=== PATIENT | female | born 1940 | race Caucasian/White ===

== ENCOUNTER 2016-09-05 18:39 | Inpatient (IN) | payer OTHER, MEDICARE ==
[~2016-09-05] VITALS: Ht 160 cm; Wt 78.9 kg
--- NOTE | 2016-09-05 18:48 | NUR ---
PT SIB [facility] FOR "LOW PLATELETS" STATING SHE HAS BEEN FEELING WEAK AND FATIGUED LATELY, HAD BLOOD WORK TODAY AND WAS TOLD TO COME TO ED.
--- NOTE | 2016-09-05 19:42 | ED GENERAL ADULT ---
History of Present Illness General Chief Complaint: General Adult Stated Complaint: PT WAS SIB BY DOCTOR FOR PLATELET Source: patient Exam Limitations: no limitations Vital Signs & Intake/Output Vital Signs & Intake/Output Vital Signs Date Time Temp Pulse Resp B/P B/P Pulse O2 O2 Flow FiO2 Mean Ox Delivery Rate 09/06 0257 99.6 92 18 134/68 94 Room Air 09/06 0115 97.8 72 20 132/78 100 Room Air 09/05 2300 98.0 66 20 128/72 100 Room Air 09/05 2121 64 16 115/58 96 Room Air 09/05 1844 97.2 69 18 124/69 96 Room Air ED Intake and Output 09/06 0000 09/05 1200 Intake Total Output Total Balance Patient 174 lb Weight Weight Reported by Patient Measurement Method Allergies Coded Allergies: No Known Allergies (09/27/15) Reconcile Medications Amoxicillin 875 MG TABLET 1 TAB PO BID ANTIBIOTIC, INFECTION (Reported) Doxycycline Monohydrate 100 MG CAPSULE 1 CAP PO BID ANTIBIOTIC, INFECTION ( Reported) Hydroxychloroquine Sulfate 200 MG TABLET 1 TAB PO BID ANTIBIOTIC, INFECTION ( Reported) Levothyroxine Sodium (Synthroid) 137 MCG TABLET 1 TAB PO DAILY THYROID HEALTH (Reported) Levothyroxine Sodium (Synthroid) 150 MCG TABLET 1 TAB PO DAILY THYROID HEALTH (Reported) Losartan Potassium 50 MG TABLET 1 TAB PO DAILY HIGH BLOOD PRESSURE (Reported) Verapamil HCl (Verapamil ER) 240 MG TABLET.ER 1 TAB PO DAILY HIGH BLOOD PRESSURE (Reported) Triage Note: PT SIB [facility] FOR "LOW PLATELETS" STATING SHE HAS BEEN FEELING WEAK AND FATIGUED LATELY, HAD BLOOD WORK TODAY AND WAS TOLD TO COME TO ED. Triage Nurses Notes Reviewed? yes Onset: Abrupt Duration: week(s): (1), constant, continues in ED Timing: recent history Injury Environment: home No Modifying Factors: none HPI: 76-year-old female comes into emergency room sent in by her doctor for abnormal labs. Patient reports that for the past week that she has not been feeling well. She's been increasingly fatigued and feeling weak with subjective fever chills. She was found to have a low platelet count and some abnormal liver function tests and was sent to the hospital for further evaluation. She admits to me that she was bitten by a tick a little over a month ago. Denies any urinary symptoms. Denies any pain. She reports that she has some body aches but no particular pain in one region. (PATRICIO WATKINS) Past History Travel History Traveled to [place] past 21 day No Medical History Any Pertinent Medical History? see below for history Neurological: NONE EENT: NONE Cardiovascular: hypertension Respiratory: NONE Gastrointestinal: NONE Hepatic: NONE Renal: NONE Musculoskeletal: NONE Psychiatric: NONE Endocrine: HYPOTHYROID Blood Disorders: NONE Cancer(s): THYROID CANCER Surgical History Surgical History: non-contributory Psychosocial History What is your primary language [place] Tobacco Use: Never used ETOH Use: denies use Illicit Drug Use: denies illicit drug use Family History Hx Contributory? No (PATRICIO WATKINS) Review of Systems Review of Systems Constitutional: Reports: see HPI. EENTM: Reports: no symptoms. Respiratory: Reports: no symptoms. Cardiovascular: Reports: no symptoms. GI: Reports: no symptoms. Genitourinary: Reports: no symptoms. Musculoskeletal: Reports: no symptoms. Skin: Reports: no symptoms. Neurological/Psychological: Reports: no symptoms. Hematologic/Endocrine: Reports: no symptoms. Immunologic/Allergic: Reports: no symptoms. All Other Systems: Reviewed and Negative (PATRICIO WATKINS) Physical Exam Physical Exam General Appearance: well developed/nourished, alert Head: atraumatic, normal appearance Eyes: Bilateral: normal appearance. Ears, Nose, Throat: normal ENT inspection, hearing grossly normal Neck: normal inspection Respiratory: normal breath sounds, no respiratory distress Cardiovascular: regular rate/rhythm Gastrointestinal: soft, non-tender Back: normal inspection Extremities: normal inspection, no edema Neurologic/Psych: awake, alert, oriented x 3 Skin: intact, normal color Core Measures ACS in differential dx? No CVA/TIA Diagnosis: No Severe Sepsis Present: No Septic Shock Present: No (PATRICIO WATKINS) Progress Differential Diagnoses I considered the following diagnoses in my evaluation of the patient: Lyme disease, babesiosis, anaplasmosis, a reclean doses,ehrlichiosis, TTP, mild dysplastic syndrome, mono, Plan of Care: Orders Procedure Date/time Status Nothing by Mouth 09/06 B Active Vital Signs 09/06 253 Complete Teach/Educate 09/06 253 Active Pain Treatment and Response 09/06 253 Active Nutritional Intake, Monitor 09/06 253 Active Isolation 09/06 253 Active Intake & Output 09/06 253 Complete Patient Care Conference 09/06 253 Active Activity/Ambulation 09/06 253 Active Patient Data 09/06 0107 Active Saline Lock 09/05 233 Active Misc Message 09/05 233 Active ED Holding Orders 09/05 233 Active Admit to inpatient 09/05 2335 Active Vital Signs 09/05 233 Active Code Status 09/05 233 Active Add-on Test (ER Only) 09/05 2214 Active Add-on Test (ER Only) 09/05 2148 Active Intake & Output 09/06 2011 Active Add-on Test (ER Only) 09/06 1935 Active URINALYSIS 09/06 1935 Complete BLOOD CULTURE 09/05 1934 Active TROPONIN LEVEL 09/05 1934 Complete PARTIAL THROMBOPLASTIN TIME 09/05 1934 Complete PROTHROMBIN TIME 09/05 1934 Complete MONOSPOT TEST 09/05 1934 Active LACTIC ACID 09/05 1934 Complete COMPREHENSIVE METABOLIC PANEL 09/05 1934 Complete CBC WITHOUT DIFFERENTIAL 09/05 1934 Complete EKG 09/05 1934 Active Laboratory Tests 09/05/162234: Lactic Acid Cancelled 09/05/162129: Urinalysis LIGHT H, Urine Color YEL, Urine Clarity CLEAR, Urine pH 6.5, Ur Specific [place] <= 1.005, Urine Protein NEG, Urine Ketones NEG, Urine Nitrite NEG, Urine Bilirubin NEG, Urine Urobilinogen 1.0, Ur Leukocyte Esterase SMALL H , Ur Microscopic SEDIMENT EXAMINED, Urine RBC RARE, Urine WBC 3-5 H, Ur Epithelial Cells FEW, Urine Bacteria FEW H, Urine Mucus RARE, Urine Hemoglobin SMALL H, Urine Glucose NEG 09/05/161952: PT 13.0 H, INR 1.24 H, APTT 24 L, CBC w Diff MAN DIFF ORDERED, RBC 4.03 L, MCV 87.8, MCH 29.8, RDW 14.1, MPV 9.7, Gran % 58.0, Lymphocytes % 28.6, Monocytes % 12.9 H, Eosinophils % 0.1, Basophils % 0.4, Absolute Granulocytes 1.7, Segmented Neutrophils 51, Band Neutrophils 6 H, Absolute Lymphocytes 0.8 L, Lymphocytes 31, Monocytes 11 H, Absolute Monocytes 0.4, Eosinophils 1, Absolute Eosinophils 0, Absolute Basophils 0, Platelet Estimate VERIFIED BY SMEAR, PUBS MCHC 33.9, Fld Total RBCs Counted 100 07/14/17 1935: Anion Gap 9, Estimated GFR > 60, BUN/Creatinine Ratio 26.0 H, Glucose 100 H, Lactic Acid 1.2, Calcium 9.3, Total Bilirubin 1.8 H, AST 50 H, ALT 67 H, Alkaline Phosphatase 67, Troponin I < 0.01, Total Protein 5.4 L, Albumin 3.2 L , Globulin 2.2, Albumin/Globulin Ratio 1.5, Infectious [place] Titer NEGATIVE Microbiology 09/05 2004 BLOOD: Blood Culture - RECD 09/05 1952 BLOOD: Blood Culture - RECD Initial ED EKG: normal intervals, normal p-waves, normal QRS complex, normal sinus rhythm, rate (70), nonspecific ST T wave chg (PATRICIO WATKINS) Departure Departure Disposition: STILL A PATIENT Condition: Stable Clinical Impression Primary Impression: Anaplasmosis Secondary Impressions: Ehrlichiosis, Thrombocytopenia Referrals: WILDER WEINSTEIN,ERICA Sandoval (PCP/Family) Departure Forms: Customer Survey General Discharge Information Admission Note Spoke With: ALVIN JOHNSON MD Documentation of Exam: Documentation of any treatments & extenuating circumstances including Concerns Regarding Discharge (functional status, medication knowledge or non-compliance, living conditions, etc.) that warrant an admission rather than observation: IV doxycycline. Repeat labs. Spoke with hematology/oncology. They recommended admission. IV antibiotics. Follow blood cultures. Infectious disease consultation. Hematology oncology consultation. (PATRICIO WATKINS) PA/GOLD LEAF ROLLER Co-Sign Statement Statement: ED Attending supervision documentation- [] I saw and evaluated the patient. I have also reviewed all the pertinent lab results and diagnostic results. I agree with the findings and the plan of care as documented in the PA's/GOLD LEAF ROLLER's documentation. [x] I have reviewed the ED Record and agree with the PA's/GOLD LEAF ROLLER's documentation. [] Additions or exceptions (if any) to the PAs/GOLD LEAF ROLLER's note and plan are summarized below: [] (MEENAKSHI WEINSTEIN,PRISCILLA Sandoval) Critical Care Note Critical Care Note Critical Care Time: non-applicable (PATRICIO WATKINS)
--- NOTE | 2016-09-05 19:59 | NUR ---
LABS DRAWN AND SENT BY THIS [facility] (BLUE,SST,2 LAV,BYNUM,PINK,1ST SET OF B/C)
[2016-09-05] MEDS ORDERED: AMOXICILLIN875 M1 PO (20:13)
[2016-09-05] MEDS ORDERED: DOXYCYCLINE MO100 M2 PO (20:13)
[2016-09-05] MEDS ORDERED: SYNTHROID137 MCG PO (20:14)
[2016-09-05] MEDS ORDERED: HYDROXYCHLOROQ200 M2 PO (20:14)
[2016-09-05] MEDS ORDERED: LOSARTAN POTASS50 M1 PO (20:15)
[2016-09-05] MEDS ORDERED: SYNTHROID150 MCG PO (20:15)
[2016-09-05] MEDS ORDERED: VERAPAMIL ER240 M1 PO (20:15)
--- NOTE | 2016-09-05 20:16 | NUR ---
PT REPORTS BEING TREATED FOR TICK BITE. PT STATES THAT NERY WEINSTEIN SENT HER IN FOR EVALUATION OF LOW PLATELETS.
[2016-09-05 20:17] LABS: ABSOLUTE BASOPHIL COUNT 0 /CUMM (0.0-0.2); ABSOLUTE EOSINOPHIL COUNT 0 /CUMM (0.0-0.7); ABSOLUTE GRANULOCYTE CT 1.7 /CUMM (1.4-6.5); ABSOLUTE LYMPH COUNT 0.8 /CUMM (1.2-3.4); ABSOLUTE MONOCYTE COUNT 0.4 /CUMM (0.10-0.60); BASOPHIL % 0.4 % (0.0-2.0); EOSINOPHIL % 0.1 % (0-5); HEMATOCRIT 35.4 % (37-47); MEAN CORPUSCULAR HGB 29.8 PG (27.0-31.0); MEAN CORPUSCULAR HGB CONC 33.9 G/DL (33.0-37.0); MEAN CORPUSCULAR VOLUME 87.8 FL (81.0-99.0); MEAN PLATELET VOLUME 9.7 FL (7.4-10.4); RBC DISTRIBUTION WIDTH 14.1 % (11.5-14.5); RED BLOOD CELL CT 4.03 /CUMM (4.20-5.40); WHITE BLOOD CELL COUNT 2.9 /CUMM (4.8-10.8)
[2016-09-05 20:30] LABS: PTT 24 SEC (25-37)
[2016-09-05 20:46] LABS: PLATELET COUNT 28 /CUMM (130-400)
--- NOTE | 2016-09-05 20:46 | NUR ---
CRITICAL TEST RESULTS [id number] RAHEL OLIVAS 76 F TESTS AND RESULTS: PLT COUNT 28,000 Results received and read back by: SEAN GIL Results received date and time: 09/05/162045 The following provider was notified of the results, and read the results back: PATRICIO EDDY Notified date and time: 09/05/16 at 204
--- NOTE | 2016-09-05 21:38 | NUR ---
URINE SPECIMEN OBTAINED AND TRIO SENT TO LAB
--- NOTE | 2016-09-05 21:57 | NUR ---
LAB CALLED FOR ADD ON TEST.
--- NOTE | 2016-09-06 01:59 | NUR ---
REPORT GIVEN TO FLOOR RN, PT PLACED INTO WC FOR TRANSPORT. 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
--- NOTE | 2016-09-06 02:52 | NUR ---
A&Ox3, VSS, 0/10 PAIN, AMBULATED FROM WHEELCHAIR TO BED INDEPENDENTLY, STEADY GAIT. ORIENTED TO FLOOR. CALL VILLAVICENCIO IN REACH. WILL CONTINUE TO MONITOR THIS SHIFT.
[2016-09-06 02:57] VITALS: BP 134/68
--- NOTE | 2016-09-06 03:48 | History & Physical ---
HOMA WEINSTEIN,ROBERT 09/06/16 0321: General Information and HPI MD Statement: I have seen and personally examined RAHEL OLIVAS and documented this H&P. The patient is a 76 year old F who presented with a patient stated chief complaint of [fatigue and malaise]. Source of Information: patient, old records Exam Limitations: poor historian History of Present Illness: This is a 76-year-old female with past medical history significant for hypothyroidism, hypertension, and some rheumatologic condition affecting the norman which requires hydroxychloroquine, who was sent in by her PCP for abnormal lab values. Patient had labs drawn yesterday as she was not feeling well. She states that she was fatigued, uneasy, tired, and overall unwell. She had MAXIMUM TEMPERATURE 101.8 today before yesterday. She also endorses subjective fevers and chills. The symptoms occurred over the past 2 weeks. Prior to that she had been in her usual state of health. Patient denies any recent travel or sick contacts. Denies headache, nausea, vomiting, diarrhea, or constipation. She does state she had a recent tick exposure about a month ago. Her found take on her back. Denies any rash subsequently. She also has a previous remote history of tick exposure and treatment, patient was unable to provide any further details. She has a large bandage in garden and has chickens at home. Patient states he spends considerable time outdoors gardening. Family history is pertinent for CLL in mother and in sister. Surgical history pertinent for hysterectomy, bowel obstruction with subsequent surgery and thyroid cancer status post thyroidectomy. Patient denies smoking, or drugs. Allergies/Medications Allergies: Coded Allergies: No Known Allergies (09/27/15) Home Med list Amoxicillin 875 MG TABLET 1 TAB PO BID ANTIBIOTIC, INFECTION (Reported) Doxycycline Monohydrate 100 MG CAPSULE 1 CAP PO BID ANTIBIOTIC, INFECTION ( Reported) Hydroxychloroquine Sulfate 200 MG TABLET 1 TAB PO BID ANTIBIOTIC, INFECTION ( Reported) Levothyroxine Sodium (Synthroid) 137 MCG TABLET 1 TAB PO DAILY THYROID HEALTH (Reported) Levothyroxine Sodium (Synthroid) 150 MCG TABLET 1 TAB PO DAILY THYROID HEALTH (Reported) Losartan Potassium 50 MG TABLET 1 TAB PO DAILY HIGH BLOOD PRESSURE (Reported) Verapamil HCl (Verapamil ER) 240 MG TABLET.ER 1 TAB PO DAILY HIGH BLOOD PRESSURE (Reported) Compliance With Home Meds: GOOD Past History Travel History Traveled to [place] past 21 day No Medical History Blood Transfusion Hx: Yes Neurological: NONE EENT: NONE Cardiovascular: hypertension Respiratory: NONE Gastrointestinal: NONE Hepatic: NONE Renal: NONE Musculoskeletal: NONE Psychiatric: NONE Endocrine: HYPOTHYROID Blood Disorders: NONE Cancer(s): 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 Denies: unexplained weight loss. EENTM: Denies: blurred vision, double vision, visual changes, ear pain, ear redness. Cardiovascular: Denies: edema, palpitations. Respiratory: Denies: cough, short of breath, wheezing. GI: Denies: bloating, constipation, nausea, vomiting. Genitourinary: Reports: no symptoms. Musculoskeletal: Denies: joint pain, joint swelling. Skin: Denies: rash. Exam & Diagnostic Data Last 24 Hrs of Vital Signs/I&O Vital Signs Date Time Temp Pulse Resp B/P B/P Pulse O2 O2 Flow FiO2 Mean Ox Delivery Rate 09/06 0257 99.6 92 18 134/68 94 Room Air 09/06 0115 97.8 72 20 132/78 100 Room Air 09/05 2300 98.0 66 20 128/72 100 Room Air 09/05 2121 64 16 115/58 96 Room Air 09/05 1844 97.2 69 18 124/69 96 Room Air Intake & Output 09/06 0800 09/06 0000 09/05 1600 Intake Total Output Total Balance Patient 78.925 kg 78.925 kg Weight Weight Reported by Patient Measurement Method Physical Exam General Appearance Alert, Oriented X3, Cooperative, No Acute Distress Skin No Significant Lesion HEENT Atraumatic, PERRLA, EOMI Neck Supple Cardiovascular Regular Rate, Normal S1, Normal S2 Lungs Clear to Auscultation, Normal Air Movement Abdomen Soft, No Hepatospenomegaly Last 24 Hrs of Labs/Mike: Laboratory Tests 09/05/165: Lactic Acid Cancelled 09/05/162129: Urinalysis LIGHT H, Urine Color YEL, Urine Clarity CLEAR, Urine pH 6.5, Ur Specific [place] <= 1.005, Urine Protein NEG, Urine Ketones NEG, Urine Nitrite NEG, Urine Bilirubin NEG, Urine Urobilinogen 1.0, Ur Leukocyte Esterase SMALL H , Ur Microscopic SEDIMENT EXAMINED, Urine RBC RARE, Urine WBC 3-5 H, Ur Epithelial Cells FEW, Urine Bacteria FEW H, Urine Mucus RARE, Urine Hemoglobin SMALL H, Urine Glucose NEG 09/05/161952: PT 13.0 H, INR 1.24 H, APTT 24 L, CBC w Diff MAN DIFF ORDERED, RBC 4.03 L, MCV 87.8, MCH 29.8, RDW 14.1, MPV 9.7, Gran % 58.0, Lymphocytes % 28.6, Monocytes % 12.9 H, Eosinophils % 0.1, Basophils % 0.4, Absolute Granulocytes 1.7, Segmented Neutrophils 51, Band Neutrophils 6 H, Absolute Lymphocytes 0.8 L, Lymphocytes 31, Monocytes 11 H, Absolute Monocytes 0.4, Eosinophils 1, Absolute Eosinophils 0, Absolute Basophils 0, Platelet Estimate VERIFIED BY SMEAR, PUBS MCHC 33.9, Fld Total RBCs Counted 100 09/05/161934: Anion Gap 9, Estimated GFR > 60, BUN/Creatinine Ratio 26.0 H, Glucose 100 H, Lactic Acid 1.2, Calcium 9.3, Total Bilirubin 1.8 H, AST 50 H, ALT 67 H, Alkaline Phosphatase 67, Troponin I < 0.01, Total Protein 5.4 L, Albumin 3.2 L , Globulin 2.2, Albumin/Globulin Ratio 1.5, Infectious [place] Titer NEGATIVE Microbiology 09/05 2004 BLOOD: Blood Culture - RECD 09/05 1952 BLOOD: Blood Culture - RECD Assessment/Plan Assessment: This is a 76-year-old female past medical history of unknown rheumatologic condition, hypothyroidism secondary to thyroidectomy, hypertension, who comes in for chief complaint of malaise, fever and weakness for the past week. ED workup showed leukopenia and thrombocytopenia with normal red blood cell count. Given her history, differential diagnosis in this patient includes tickborne illness vs malignancy. The workup shows:Vitals: 97.2, 69, 18, 124/69, 96.UA: Small leukocyte esterase, 3-5 white blood cell, few bacteria, small urine hemoglobin. CBC: White count 2.9, hemoglobin 12.0, hematocrit 35, platelet 28. 6 bands. 1.24 INR. BEP: Sodium 129, potassium 3.2, bicarbonate 5, chloride 26, BUN 13, creatinine 0.5EKG: CA interval at 196, QTC of 436. Some T-wave abnormalities in V3 to V6. Negative troponin 1 AST 50, ALT 67. Plan thrombocytopenia and leukopenia: * Tick panel * monitor CBC and transfuse if necessary * Place ID consult * IV doxycycline * Thank you for hematology and oncology consult * Blood cultures 2 * Follow-up blood cultures Transaminitis: This could be associated with patient's tick borne illness or an independent process. Patient has no right upper quadrant pain at this time. INR at 1.24 * Monitor AST and ALT * Monitor coags Hyponatremia: Patient has sodium 129. This can often be a manifestation of tickborne illness. Additionally, patient eloped very dry his stated that she didn't have much by mouth intake given her malaise for the past week. * Encourage hydration * IV hydration for 2 bags Hypertension: Chronic and stable * Continue losartan * Continue verapamil Hypothyroid: Chronic and stable. * Continue Synthroid Unknown rheumatologic condition: Chronic and stable * continue hydroxychloroquine As Ranked By This Provider Problem List: 1. Ehrlichiosis 2. Thrombocytopenia 3. Anaplasmosis Core Measures/Miscellaneous Acute Coronary Syndrome ACS Diagnosis: No Cerebrovascular Accident CVA/TIA Diagnosis: No Congestive Heart Failure CHF Diagnosis: No VTE (View Protocol) VTE Risk Factors: Acute medical illness, Age > 40 No [facility] VTE prophylaxis d/t: No contraindications No VTE Pharm Prophylaxis d/t: No contraindications VTE Diagnosis: No VTE Type: NONE VTE Confirmed by (Test): NONE Sepsis (View Protocol) Severe Sepsis Present: No Septic Shock Septic Shock Present: No Miscellaneous Documentation Attending Case Discussed With: BATSHEVA JOHNSON [facility] Primary Care Physician: ERICA HDZ MD Patient sees these Specialists unknown Level of Patient Care: General Surgical Consults Needed: Consulting Specialty: Infectious Disease KOFI JOHNSON MD 09/06/16 0550: Attending MD Review Statement Attending Statement Attending MD Statement: examined this patient, discuss w/resident/PA/STUDENT OFFICER, agreed w/resident/PA/STUDENT OFFICER Attending Assessment/Plan: 76 yo F with h/o thyroid cancer s/p surgery now on replacement, HTN, RA on plaquenil, osteoporosis, seasonal allergies, was sent in by PCP for evaluation of thrombocytopenia (Plt 28). She reports a 1 week h/o weakness, fatigue, poor appetite, subjective fever and chills. Noted Tmax of 101 at home. Recollects tick bite on her back that was removed (not engorged) by her 3-4 weeks ago. No rashes. No easy brusing or bleeding. She does a lot of gardening and is out in the yard mostly. Of note, her PCP started her on Amoxicillin on September 02 , which patient reports was for a probable UTI. VSS. Exam significant for systolic ejection murmur. Labs: WBC 2.9, bands 6, H/H 12/35.4, Plt 28, INR 1.24, Na 129, K 3.3, lactic acid 1.2, T. Bili 1.8, AST 50, ALT 67, trop neg, UA clear. [place] titer neg. EKG: SR. 1. Constellation of symptoms with thrombocytopenia, leukopenia, transaminitis, most suggestive of a tick borne illness anaplasmosis vs. Ehrlichiosis, cannot rule out Lyme or Babesiosis. GM admit, place on bleeding precautions, send complete tick borne panel, initiate IV Doxycycline for now, gentle IV hydration. Consult Hematology and ID in AM. Check LDH. Fractionate Tbili. Avoid hepatotoxic drugs. 2. Hypovolemic hyponatremia. Hydrate and recheck sodium levels. Check serum and urine osmolality. 3. Chronic issues: Continue losartan, verapamil, synthroid and plaquenil. DVT ppx Alps. DNR/I.
--- NOTE | 2016-09-06 05:30 | Admission Certification ---
Admission Certification Certification Statement - As attending physician, I certify that at the time of - admission, based on clinical presentation, severity of - symptoms, need for further diagnostic testing and - therapeutic interventions, and risk of adverse outcomes - without in-hospital treatment, in my clinical assessment, - this patient requires an acute hospital stay for a minimum - of two nights or longer. I have also considered psychsocial - factors such as support system, advanced age, financial - issues, cognitive issues, and failed out-patient treatments, - past re-admission history, safety of patient, and lack of - compliance as applicable. Specific rationale supporting this admission is: Tick borne illness, thrombocytopenia.
[2016-09-06] MEDS ORDERED: LEVOTHYROXINE150 MCG PO (06:06)
[2016-09-06 06:48] VITALS: BP 104/62
[2016-09-06 08:52] LABS: ABSOLUTE BASOPHIL COUNT 0 /CUMM (0.0-0.2); ABSOLUTE EOSINOPHIL COUNT 0 /CUMM (0.0-0.7); ABSOLUTE GRANULOCYTE CT 1.6 /CUMM (1.4-6.5); ABSOLUTE MONOCYTE COUNT 0.3 /CUMM (0.10-0.60); WHITE BLOOD CELL COUNT 2.8 /CUMM (4.8-10.8)
[2016-09-06 09:35] LABS: ABSOLUTE LYMPH COUNT 0.8 /CUMM (1.2-3.4); EOSINOPHIL % 0 % (0-5); HEMATOCRIT 36.1 % (37-47); MEAN CORPUSCULAR HGB 29.7 PG (27.0-31.0); MEAN CORPUSCULAR HGB CONC 33.8 G/DL (33.0-37.0); MEAN PLATELET VOLUME 9.6 FL (7.4-10.4); RBC DISTRIBUTION WIDTH 14.2 % (11.5-14.5)
[2016-09-06 10:23] LABS: PLATELET COUNT 26 /CUMM (130-400)
--- NOTE | 2016-09-06 14:04 | Cons- Hematology ---
General Information and HPI Consulting Request Date of Consult: 09/06/16 Requested By: ELIZABETH WEINSTEIN,ALVIN Reason for Consult: Leukopenia, thrombocytopenia Source of Information: patient Exam Limitations: no limitations History of Present Illness: Ms. Owen is a 76-year-old female with hypothyroidism, hypertension, and rheumatoid arthritis on hydroxychloroquine who presented to the hospital with new leukopenia and thrombocytopenia after obtaining blood work from her PCP. Ms. Owen has not been feeling well for at least the last 1 week. She has had fever and chills. She denies any shortness of breath, cough, chest pain, abdominal pain, nausea, vomiting, diarrhea, or dysuria. She did have frequency. She has fatigue. She states she was recently treated empirically for UTI. She has no sick contact. She did have a tick bite about a month ago. She denies any new changes in her medications. On admission, she was noted to be afebrile and normotensive. She had a WBC of 2.9 and platelet count of 28,000. Hemoglobin and hematocrit is slightly decreased. Differentials demonstrated 6% bands. She was noted to be hyponatremic with elevated bilirubin and LFT. She feels well since admission. She was started on doxycycline. Allergies/Medications Allergies: Coded Allergies: No Known Allergies (09/27/15) Home Med List: Amoxicillin 875 MG TABLET 1 TAB PO BID ANTIBIOTIC, INFECTION (Reported) Doxycycline Monohydrate 100 MG CAPSULE 1 CAP PO BID ANTIBIOTIC, INFECTION ( Reported) Hydroxychloroquine Sulfate 200 MG TABLET 1 TAB PO BID ANTIBIOTIC, INFECTION ( Reported) Levothyroxine Sodium (Synthroid) 137 MCG TABLET 1 TAB PO THURSDAY-THURSDAY THYROID HEALTH (Reported) Levothyroxine Sodium 150 MCG TABLET 1 TAB PO SAT-SUN HYPOTHYROID (Reported) Losartan Potassium 50 MG TABLET 1 TAB PO DAILY HIGH BLOOD PRESSURE (Reported) Verapamil HCl (Verapamil ER) 240 MG TABLET.ER 1 TAB PO DAILY HIGH BLOOD PRESSURE (Reported) Current Medications: Current Medications Sig/Lynn Start time Last Medication Dose Route Stop Time Status Admin Doxycycline Hyclate 100 MG BID 09/06 1000 CAN PO Doxycycline Hyclate 100 MG Q12 09/06 1000 AC 09/06 Sodium Chloride 100 ML IV 1016 Doxycycline Hyclate 100 MG ONCE ONE 09/05 2229 DC 09/05 Sodium Chloride 100 ML IV 09/05 2334 2230 Hydroxychloroquine 200 MG BID 09/06 1000 AC 09/06 Sulfate PO 1016 Ibuprofen 600 MG Q6P PRN 09/06 0400 AC PO Levothyroxine Sodium 0.137 MG DAILY AC 09/08 07 AC PO 09/12 0701 Levothyroxine Sodium 0.137 MG DAILY 09/06 1000 CAN PO Levothyroxine Sodium 0.15 MG DAILY AC 09/06 0700 AC 09/06 PO 09/07 0701 0758 Oxycodone HCl 5 MG Q6 PRN 09/06 0400 AC PO Oxycodone HCl 10 MG Q6P PRN 09/06 0400 AC PO Sodium Chloride 1,000 ML Q13H 09/06 0430 AC 09/06 IV 09/07 0629 0513 Review of Systems Review of Systems Constitutional: Reports: chills, fever, malaise, weakness. Denies: unexplained weight loss. Cardiovascular: Denies: chest pain, edema, orthopena, palpitations, peripheral edema. Respiratory: Denies: short of breath. GI: Denies: abdominal pain, bloating, constipation, diarrhea, nausea, vomiting. Genitourinary: Denies: dysuria. Musculoskeletal: Denies: back pain, joint pain. Neurological/Psychological: Denies: anxiety, ataxia, confusion, depressed. Hematologic/Endocrine: Denies: bruising, bleeding. Immunologic/Allergic: Denies: lymphadenopathy. 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 Surgical History Surgical History: hysterectomy Family History Relations & Conditions If Any: Relation not specified for: CLL (chronic lymphoid leukemia) Psychosocial History Smoking Status: Never Smoked ETOH Use: denies use Illicit Drug Use: denies illicit drug use Exam & Diagnostic Data Vital Signs and I&O Vital Signs Date Time Temp Pulse Resp B/P B/P Pulse O2 O2 Flow FiO2 Mean Ox Delivery Rate 09/06 0648 98.5 68 16 104/62 95 Room Air 09/06 0257 99.6 92 18 134/68 94 Room Air 09/06 0115 97.8 72 20 132/78 100 Room Air 07/14 2300 98.0 66 20 128/72 100 Room Air 09/05 2121 64 16 115/58 96 Room Air 09/05 1844 97.2 69 18 124/69 96 Room Air Intake & Output 09/06 1600 09/06 0800 09/06 0000 Intake Total 390 Output Total Balance 390 Intake, IV 150 Intake, Oral 240 Patient 78.925 kg 78.925 kg Weight Weight Reported by Patient Measurement Method Physical Exam General Appearance: well developed/nourished, no apparent distress, alert, awake , comfortable Head: atraumatic Eyes: Bilateral: PERRL. Ears, Nose, Throat: normal pharynx, moist mucus membranes Neck: normal inspection, supple Respiratory: normal breath sounds, chest non-tender, no respiratory distress, lungs clear Cardiovascular: regular rate/rhythm, murmur Gastrointestinal: normal bowel sounds, soft, non-tender, no organomegaly Back: normal inspection Extremities: normal inspection, no edema Neurologic/Psych: awake, alert, oriented x 3 Skin: intact, normal color Lymphatic: no adenopathy Last 48 Hours of Lab Results: Laboratory Tests 09/06 09/05 0614 2235 Chemistry Sodium (137 - 145 mmol/L) 135 L Potassium (3.5 - 5.1 mmol/L) 3.2 L Chloride (98 - 107 mmol/L) 100 Carbon Dioxide (22 - 30 mmol/L) 25 Anion Gap (5 - 16) 9 BUN (7 - 17 mg/dL) 9 Creatinine (0.5 - 1.0 mg/dL) 0.5 Estimated GFR (>60 ml/min) > 60 BUN/Creatinine Ratio (7 - 25 %) 18.0 Lactic Acid Cancelled Total Bilirubin (0.2 - 1.3 mg/dL) 1.7 H Direct Bilirubin (< 0.4 mg/dL) 0.5 H AST (14 - 36 U/L) 60 H ALT (9 - 52 U/L) 71 H Alkaline Phosphatase (<127 U/L) 72 Total Protein (6.3 - 8.2 g/dL) 5.2 L Albumin (3.5 - 5.0 g/dL) 3.0 L Hematology CBC w Diff NO MAN DIFF REQ WBC (4.8 - 10.8 /CUMM) 2.8 L RBC (4.20 - 5.40 /CUMM) 4.10 L Hgb (12.0 - 16.0 G/DL) 12.2 Hct (37 - 47 %) 36.1 L MCV (81.0 - 99.0 FL) 88.0 MCH (27.0 - 31.0 PG) 29.7 RDW (11.5 - 14.5 %) 14.2 Plt Count (130 - 400 /CUMM) 26 *L MPV (7.4 - 10.4 FL) 9.6 Gran % (42.2 - 75.2 %) 58.0 Lymphocytes % (20.5 - 51.1 %) 29.8 Monocytes % (1.7 - 9.3 %) 11.2 H Eosinophils % (0 - 5 %) 0 Basophils % (0.0 - 2.0 %) 1.0 Absolute Granulocytes (1.4 - 6.5 /CUMM) 1.6 Absolute Lymphocytes (1.2 - 3.4 /CUMM) 0.8 L Absolute Monocytes (0.10 - 0.60 /CUMM) 0.3 Absolute Eosinophils (0.0 - 0.7 /CUMM) 0 Absolute Basophils (0.0 - 0.2 /CUMM) 0 PUBS MCHC (33.0 - 37.0 G/DL) 33.8 09/050 Urines Urinalysis LIGHT H Urine Color (YEL,AMB,STR) YEL Urine Clarity (CLEAR) CLEAR Urine pH (5.0 - 8.0) 6.5 Ur Specific [place] (1.001 - 1.035) <= 1.005 Urine Protein (NEG,<30 MG/DL) NEG Urine Ketones (NEG) NEG Urine Nitrite (NEG) NEG Urine Bilirubin (NEG) NEG Urine Urobilinogen (0.1 - 1.0 EU/dl) 1.0 Ur Leukocyte Esterase (NEG) SMALL H Ur Microscopic SEDIMENT EXAMINED Urine RBC (0 - 5 /HPF) RARE Urine WBC (0 - 2 /HPF) 3-5 H Ur Epithelial Cells (NONE,FEW) FEW Urine Bacteria (NEG/NONE) FEW H Urine Mucus (FEW,NONE) RARE Urine Hemoglobin (NEG) SMALL H Urine Glucose (N MG/DL) NEG 09/05 193 Chemistry Sodium (137 - 145 mmol/L) 129 L Potassium (3.5 - 5.1 mmol/L) 3.3 L Chloride (98 - 107 mmol/L) 95 L Carbon Dioxide (22 - 30 mmol/L) 26 Anion Gap (5 - 16) 9 BUN (7 - 17 mg/dL) 13 Creatinine (0.5 - 1.0 mg/dL) 0.5 Estimated GFR (>60 ml/min) > 60 BUN/Creatinine Ratio (7 - 25 %) 26.0 H Glucose (65 - 99 mg/dL) 100 H Lactic Acid (0.7 - 2.1 mmol/L) 1.2 Calcium (8.4 - 10.2 mg/dL) 9.3 Total Bilirubin (0.2 - 1.3 mg/dL) 1.8 H AST (14 - 36 U/L) 50 H ALT (9 - 52 U/L) 67 H Alkaline Phosphatase (<127 U/L) 67 Troponin I (< 0.11 ng/ml) < 0.01 Total Protein (6.3 - 8.2 g/dL) 5.4 L Albumin (3.5 - 5.0 g/dL) 3.2 L Globulin (1.9 - 4.2 gm/dL) 2.2 Albumin/Globulin Ratio (1.1 - 2.2 %) 1.5 Coagulation PT (9.4 - 12.5 SEC) 13.0 H INR (0.90 - 1.19) 1.24 H APTT (25 - 37 SEC) 24 L Hematology CBC w Diff MAN DIFF ORDERED WBC (4.8 - 10.8 /CUMM) 2.9 L RBC (4.20 - 5.40 /CUMM) 4.03 L Hgb (12.0 - 16.0 G/DL) 12.0 Hct (37 - 47 %) 35.4 L MCV (81.0 - 99.0 FL) 87.8 MCH (27.0 - 31.0 PG) 29.8 RDW (11.5 - 14.5 %) 14.1 Plt Count (130 - 400 /CUMM) 28 *L MPV (7.4 - 10.4 FL) 9.7 Gran % (42.2 - 75.2 %) 58.0 Lymphocytes % (20.5 - 51.1 %) 28.6 Monocytes % (1.7 - 9.3 %) 12.9 H Eosinophils % (0 - 5 %) 0.1 Basophils % (0.0 - 2.0 %) 0.4 Absolute Granulocytes (1.4 - 6.5 /CUMM) 1.7 Segmented Neutrophils (42.2 - 75.2 %) 51 Band Neutrophils (0.0 - 5.0 %) 6 H Absolute Lymphocytes (1.2 - 3.4 /CUMM) 0.8 L Lymphocytes (20.5 - 51.1 %) 31 Monocytes (1.7 - 9.3 %) 11 H Absolute Monocytes (0.10 - 0.60 /CUMM) 0.4 Eosinophils (0 - 5.0 %) 1 Absolute Eosinophils (0.0 - 0.7 /CUMM) 0 Absolute Basophils (0.0 - 0.2 /CUMM) 0 Platelet Estimate (ADEQUATE) VERIFIED BY SMEAR PUBS MCHC (33.0 - 37.0 G/DL) 33.9 Other Body Source Fld Total RBCs Counted (%) 100 Serology Infectious [place] Titer (NEGATIVE) NEGATIVE Assessment/Plan Assessment: Ms. Owen is a 76-year-old female with history of thyroid malignancy status post thyroidectomy, hypothyroidism, rheumatoid arthritis on hydroxychloroquine, and hypertension who presented to [facility] with new leukopenia and thrombocytopenia. On admission, she was noted to have WBC of 2900 with ANC of 1700. She had 6% bands. Platelet was 28,000. These are new compared to previous blood work, last in 03/2016. She was alson noted to have an elevated bilirubin of 2.0, mostly indirect. LFT is slightly increased and trending upward. She was hyponatremic. She has been noted to have fever and chills at home. She does have a history of tick bite. Her signs and symptoms are concerning for tick-borne disease likely ehrlichiosis/anaplasmosis. In addition , viral syndrome is also possible. Peripheral blood smear noted large platelets. There is no immature cells. She does have atypical lymphocytes and bands. She is being treated with doxycycline currently. She will be monitored for now. Recommendations: 1. Check for ehrlichiosis, anaplasmosis, babesiosis, lyme 2. Continue doxycycline 3. Follow up with ID recommendation 4. No need for transfusion at the moment Problem List: 1. Thrombocytopenia 2. Leukopenia Other Findings/Comments: Please call [phone] with any questions or concerns. Consult Acknowledgment - Thank you for your consult request.
[2016-09-06 14:54] VITALS: BP 124/68
--- NOTE | 2016-09-06 16:20 | Cons- Infect Disease ---
General Information and HPI Consulting Request Date of Consult: 09/06/16 Requested By: ELIZABETH WEINSTEIN,ALVIN Reason for Consult: Leukopenia/thrombocytopenia Source of Information: patient, family History of Present Illness: This is a 76-year-old woman with a history of rheumatoid arthritis, maintained on Plaquenil for many years, hypothyroidism and hypertension, who was noted by her to have a tick on her back several weeks prior to admission, with the development of fatigue, anorexia, fevers to 102 and chills 1 week prior to admission, begun empirically on Amoxicillin by her primary care physician 3 days prior to admission, admitted on September 05 after she was referred to the emergency room by her primary care physician because of leukopenia and thrombocytopenia found on a CBC performed earlier that day. On admission she was afebrile. Laboratory data revealed a white blood cell of 2.9, with 51 segs and 6 bands, H& H 12 and 35, platelets 28,000, with a few reactive lymphs on the peripheral smear, BUN/creatinine 13 and 0.5, sodium 129, potassium 3.3, bilirubin 1.8, AST/ ALT 50 and 67, INR 1.24, Monospot negative. Urinalysis rare RBC/3-5 WBCs. She was begun on Doxycycline and has remained afebrile overnight. She feels somewhat improved today. Allergies/Medications Allergies: Coded Allergies: No Known Allergies (09/27/15) Home Med List: Amoxicillin 875 MG TABLET 1 TAB PO BID ANTIBIOTIC, INFECTION (Reported) Doxycycline Monohydrate 100 MG CAPSULE 1 CAP PO BID ANTIBIOTIC, INFECTION ( Reported) Hydroxychloroquine Sulfate 200 MG TABLET 1 TAB PO BID ANTIBIOTIC, INFECTION ( Reported) Levothyroxine Sodium (Synthroid) 137 MCG TABLET 1 TAB PO THURSDAY-THURSDAY THYROID HEALTH (Reported) Levothyroxine Sodium 150 MCG TABLET 1 TAB PO SAT-SUN HYPOTHYROID (Reported) Losartan Potassium 50 MG TABLET 1 TAB PO DAILY HIGH BLOOD PRESSURE (Reported) Verapamil HCl (Verapamil ER) 240 MG TABLET.ER 1 TAB PO DAILY HIGH BLOOD PRESSURE (Reported) Past History Travel History Traveled to [place] past 21 day No Medical History Blood Transfusion Hx: Yes Neurological: NONE EENT: NONE Cardiovascular: hypertension Respiratory: NONE Gastrointestinal: NONE Hepatic: NONE Renal: NONE Musculoskeletal: rheumatoid arthritis Psychiatric: NONE Endocrine: HYPOTHYROID Blood Disorders: NONE Cancer(s): THYROID CANCER Isolation History: Standard Surgical History Surgical History: hysterectomy Family History Relations & Conditions If Any: Relation not specified for: CLL (chronic lymphoid leukemia) Psychosocial History Smoking Status: Never Smoked ETOH Use: denies use Illicit Drug Use: denies illicit drug use Review of Systems Review of Systems All Other Systems: Reviewed and Negative Exam & Diagnostic Data Last 24 Hrs of Vital Signs/I&O Vital Signs Date Time Temp Pulse Resp B/P B/P Pulse O2 O2 Flow FiO2 Mean Ox Delivery Rate 09/06 1454 97.6 71 20 124/68 94 09/06 0648 98.5 68 16 104/62 95 Room Air 09/06 0257 99.6 92 18 134/68 94 Room Air 09/06 0115 97.8 72 20 132/78 100 Room Air 09/05 2300 98.0 66 20 128/72 100 Room Air 09/05 2121 64 16 115/58 96 Room Air 09/05 1844 97.2 69 18 124/69 96 Room Air Intake & Output 09/06 1600 09/06 0800 09/06 0000 Intake Total 1325 390 Output Total Balance 1325 390 Intake, IV 525 150 Intake, Oral 800 240 Patient 174 lb 174 lb Weight Weight Reported by Patient Measurement Method Physical Exam Other Physical Findings: Afebrile. Skin reveals no rash. HEENT negative. Neck is supple with no adenopathy. Lungs are clear. Heart regular rhythm with no murmur. Abdomen is soft, nontender with positive bowel sounds. Back no CVA tenderness. Extremities no cyanosis, clubbing or edema. Neuro is without focality. Last 24 Hours of Lab Results: Laboratory Tests 09/06 09/05 0614 2235 Chemistry Sodium (137 - 145 mmol/L) 135 L Potassium (3.5 - 5.1 mmol/L) 3.2 L Chloride (98 - 107 mmol/L) 100 Carbon Dioxide (22 - 30 mmol/L) 25 Anion Gap (5 - 16) 9 BUN (7 - 17 mg/dL) 9 Creatinine (0.5 - 1.0 mg/dL) 0.5 Estimated GFR (>60 ml/min) > 60 BUN/Creatinine Ratio (7 - 25 %) 18.0 Lactic Acid Cancelled Total Bilirubin (0.2 - 1.3 mg/dL) 1.7 H Direct Bilirubin (< 0.4 mg/dL) 0.5 H AST (14 - 36 U/L) 60 H ALT (9 - 52 U/L) 71 H Alkaline Phosphatase (<127 U/L) 72 Total Protein (6.3 - 8.2 g/dL) 5.2 L Albumin (3.5 - 5.0 g/dL) 3.0 L Hematology CBC w Diff NO MAN DIFF REQ WBC (4.8 - 10.8 /CUMM) 2.8 L RBC (4.20 - 5.40 /CUMM) 4.10 L Hgb (12.0 - 16.0 G/DL) 12.2 Hct (37 - 47 %) 36.1 L MCV (81.0 - 99.0 FL) 88.0 MCH (27.0 - 31.0 PG) 29.7 RDW (11.5 - 14.5 %) 14.2 Plt Count (130 - 400 /CUMM) 26 *L MPV (7.4 - 10.4 FL) 9.6 Gran % (42.2 - 75.2 %) 58.0 Lymphocytes % (20.5 - 51.1 %) 29.8 Monocytes % (1.7 - 9.3 %) 11.2 H Eosinophils % (0 - 5 %) 0 Basophils % (0.0 - 2.0 %) 1.0 Absolute Granulocytes (1.4 - 6.5 /CUMM) 1.6 Absolute Lymphocytes (1.2 - 3.4 /CUMM) 0.8 L Absolute Monocytes (0.10 - 0.60 /CUMM) 0.3 Absolute Eosinophils (0.0 - 0.7 /CUMM) 0 Absolute Basophils (0.0 - 0.2 /CUMM) 0 PUBS MCHC (33.0 - 37.0 G/DL) 33.8 09/05 2130 Urines Urinalysis LIGHT H Urine Color (YEL,AMB,STR) YEL Urine Clarity (CLEAR) CLEAR Urine pH (5.0 - 8.0) 6.5 Ur Specific [place] (1.001 - 1.035) <= 1.005 Urine Protein (NEG,<30 MG/DL) NEG Urine Ketones (NEG) NEG Urine Nitrite (NEG) NEG Urine Bilirubin (NEG) NEG Urine Urobilinogen (0.1 - 1.0 EU/dl) 1.0 Ur Leukocyte Esterase (NEG) SMALL H Ur Microscopic SEDIMENT EXAMINED Urine RBC (0 - 5 /HPF) RARE Urine WBC (0 - 2 /HPF) 3-5 H Ur Epithelial Cells (NONE,FEW) FEW Urine Bacteria (NEG/NONE) FEW H Urine Mucus (FEW,NONE) RARE Urine Hemoglobin (NEG) SMALL H Urine Glucose (N MG/DL) NEG 09/05 Chemistry Sodium (137 - 145 mmol/L) 129 L Potassium (3.5 - 5.1 mmol/L) 3.3 L Chloride (98 - 107 mmol/L) 95 L Carbon Dioxide (22 - 30 mmol/L) 26 Anion Gap (5 - 16) 9 BUN (7 - 17 mg/dL) 13 Creatinine (0.5 - 1.0 mg/dL) 0.5 Estimated GFR (>60 ml/min) > 60 BUN/Creatinine Ratio (7 - 25 %) 26.0 H Glucose (65 - 99 mg/dL) 100 H Lactic Acid (0.7 - 2.1 mmol/L) 1.2 Calcium (8.4 - 10.2 mg/dL) 9.3 Total Bilirubin (0.2 - 1.3 mg/dL) 1.8 H AST (14 - 36 U/L) 50 H ALT (9 - 52 U/L) 67 H Alkaline Phosphatase (<127 U/L) 67 Troponin I (< 0.11 ng/ml) < 0.01 Total Protein (6.3 - 8.2 g/dL) 5.4 L Albumin (3.5 - 5.0 g/dL) 3.2 L Globulin (1.9 - 4.2 gm/dL) 2.2 Albumin/Globulin Ratio (1.1 - 2.2 %) 1.5 Coagulation PT (9.4 - 12.5 SEC) 13.0 H INR (0.90 - 1.19) 1.24 H APTT (25 - 37 SEC) 24 L Hematology CBC w Diff MAN DIFF ORDERED WBC (4.8 - 10.8 /CUMM) 2.9 L RBC (4.20 - 5.40 /CUMM) 4.03 L Hgb (12.0 - 16.0 G/DL) 12.0 Hct (37 - 47 %) 35.4 L MCV (81.0 - 99.0 FL) 87.8 MCH (27.0 - 31.0 PG) 29.8 RDW (11.5 - 14.5 %) 14.1 Plt Count (130 - 400 /CUMM) 28 *L MPV (7.4 - 10.4 FL) 9.7 Gran % (42.2 - 75.2 %) 58.0 Lymphocytes % (20.5 - 51.1 %) 28.6 Monocytes % (1.7 - 9.3 %) 12.9 H Eosinophils % (0 - 5 %) 0.1 Basophils % (0.0 - 2.0 %) 0.4 Absolute Granulocytes (1.4 - 6.5 /CUMM) 1.7 Segmented Neutrophils (42.2 - 75.2 %) 51 Band Neutrophils (0.0 - 5.0 %) 6 H Absolute Lymphocytes (1.2 - 3.4 /CUMM) 0.8 L Lymphocytes (20.5 - 51.1 %) 31 Monocytes (1.7 - 9.3 %) 11 H Absolute Monocytes (0.10 - 0.60 /CUMM) 0.4 Eosinophils (0 - 5.0 %) 1 Absolute Eosinophils (0.0 - 0.7 /CUMM) 0 Absolute Basophils (0.0 - 0.2 /CUMM) 0 Platelet Estimate (ADEQUATE) VERIFIED BY SMEAR PUBS MCHC (33.0 - 37.0 G/DL) 33.9 Other Body Source Fld Total RBCs Counted (%) 100 Serology Infectious [place] Titer (NEGATIVE) NEGATIVE Last 24 Hours of Mike Results: Blood cultures 2 September 05 negative Urine culture September 05 negative Assessment/Plan Assessment/Plan Impression: This is a 76-year-old woman with hypertension, hypothyroidism and rheumatoid arthritis, maintained on Plaquenil for many years, admitted on September 05 with a one-week history of fatigue, anorexia, fevers and chills, found to be pancytopenic with mildly elevated liver enzymes, treated empirically with Doxycycline with some subjective improvement. Her clinical picture is consistent with a tickborne infection. Certainly Anaplasma must be considered with the leukopenia and thrombocytopenia and empiric treatment for this is appropriate. This would also cover other organisms transmitted by the Ixodes scapularis tick, such as Lyme disease and Borrelia miyamotoi, but not Babesiosis , which is also a possibility, particularly with the elevated bilirubin and anemia. A viral illness is also possible, such as West Nile virus, though treatment for this would be only supportive. Other possible causes of her pancytopenia include an underlying hematologic disorder, less likely given the acuity of her symptoms and normal CBC 5 months prior to admission, or a drug- induced process, though she has been on Plaquenil for many years. Suggestion: 1. Would review peripheral smear for evidence of rings in the red blood cells or morulae within the white blood cells 2. Follow-up Anaplasma PCR, Babesia PCR and Lyme titer 3. Continue Doxycycline but would change to 100 mg p.o. every 12 hours to plan on a 10 day course pending above Dr. Guerra will be covering me until September 15 Consult Acknowledgment - Thank you for your consult request.
--- NOTE | 2016-09-06 19:34 | PN- Att Addend ---
Attending Addendum Attending Brief Note Patient seen and examined. Plan of care discussed with the medical team and the patient. Available lab work and radiology test reports were reviewed. Patient states that she is feeling slightly better. She denies any fever or chills or any sore throat. Denies any coughing phlegm or chest pain or difficulty breathing. Denies any nausea vomiting or skin rashes. Vital Signs Date Time Temp Pulse Resp B/P B/P Pulse O2 O2 Flow FiO2 Mean Ox Delivery Rate 09/06 1454 97.6 71 20 124/68 94 09/06 0648 98.5 68 16 104/62 95 Room Air 09/06 0257 99.6 92 18 134/68 94 Room Air 09/06 0115 97.8 72 20 132/78 100 Room Air 09/05 2300 98.0 66 20 128/72 100 Room Air 09/05 2121 64 16 115/58 96 Room Air Intake & Output 09/06 1600 09/06 0800 09/06 0000 Intake Total 1325 390 Output Total Balance 1325 390 Intake, IV 525 150 Intake, Oral 800 240 Patient 174 lb 174 lb Weight Weight Reported by Patient Measurement Method Exam: General: Patient awake alert oriented without any distress CVS: S1 plus S2 without any murmur or gallops Chest: Few scattered crepitation without any wheeze. There is no respiratory distress. 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 without any focal neuro deficit and follows command appropriately Extremities: No edema; no clubbing or cyanosis noted Laboratory Tests 09/06 09/05 0614 2235 Chemistry Sodium (137 - 145 mmol/L) 135 L Potassium (3.5 - 5.1 mmol/L) 3.2 L Chloride (98 - 107 mmol/L) 100 Carbon Dioxide (22 - 30 mmol/L) 25 Anion Gap (5 - 16) 9 BUN (7 - 17 mg/dL) 9 Creatinine (0.5 - 1.0 mg/dL) 0.5 Estimated GFR (>60 ml/min) > 60 BUN/Creatinine Ratio (7 - 25 %) 18.0 Lactic Acid Cancelled Total Bilirubin (0.2 - 1.3 mg/dL) 1.7 H Direct Bilirubin (< 0.4 mg/dL) 0.5 H AST (14 - 36 U/L) 60 H ALT (9 - 52 U/L) 71 H Alkaline Phosphatase (<127 U/L) 72 Total Protein (6.3 - 8.2 g/dL) 5.2 L Albumin (3.5 - 5.0 g/dL) 3.0 L Hematology CBC w Diff NO MAN DIFF REQ WBC (4.8 - 10.8 /CUMM) 2.8 L RBC (4.20 - 5.40 /CUMM) 4.10 L Hgb (12.0 - 16.0 G/DL) 12.2 Hct (37 - 47 %) 36.1 L MCV (81.0 - 99.0 FL) 88.0 MCH (27.0 - 31.0 PG) 29.7 RDW (11.5 - 14.5 %) 14.2 Plt Count (130 - 400 /CUMM) 26 *L MPV (7.4 - 10.4 FL) 9.6 Gran % (42.2 - 75.2 %) 58.0 Lymphocytes % (20.5 - 51.1 %) 29.8 Monocytes % (1.7 - 9.3 %) 11.2 H Eosinophils % (0 - 5 %) 0 Basophils % (0.0 - 2.0 %) 1.0 Absolute Granulocytes (1.4 - 6.5 /CUMM) 1.6 Absolute Lymphocytes (1.2 - 3.4 /CUMM) 0.8 L Absolute Monocytes (0.10 - 0.60 /CUMM) 0.3 Absolute Eosinophils (0.0 - 0.7 /CUMM) 0 Absolute Basophils (0.0 - 0.2 /CUMM) 0 PUBS MCHC (33.0 - 37.0 G/DL) 33.8 Serology Lyme Disease Antibody Pending 09/05 2130 Urines Urinalysis LIGHT H Urine Color (YEL,AMB,STR) YEL Urine Clarity (CLEAR) CLEAR Urine pH (5.0 - 8.0) 6.5 Ur Specific [place] (1.001 - 1.035) <= 1.005 Urine Protein (NEG,<30 MG/DL) NEG Urine Ketones (NEG) NEG Urine Nitrite (NEG) NEG Urine Bilirubin (NEG) NEG Urine Urobilinogen (0.1 - 1.0 EU/dl) 1.0 Ur Leukocyte Esterase (NEG) SMALL H Ur Microscopic SEDIMENT EXAMINED Urine RBC (0 - 5 /HPF) RARE Urine WBC (0 - 2 /HPF) 3-5 H Ur Epithelial Cells (NONE,FEW) FEW Urine Bacteria (NEG/NONE) FEW H Urine Mucus (FEW,NONE) RARE Urine Hemoglobin (NEG) SMALL H Urine Glucose (N MG/DL) NEG 09/05 Chemistry Sodium (137 - 145 mmol/L) 129 L Potassium (3.5 - 5.1 mmol/L) 3.3 L Chloride (98 - 107 mmol/L) 95 L Carbon Dioxide (22 - 30 mmol/L) 26 Anion Gap (5 - 16) 9 BUN (7 - 17 mg/dL) 13 Creatinine (0.5 - 1.0 mg/dL) 0.5 Estimated GFR (>60 ml/min) > 60 BUN/Creatinine Ratio (7 - 25 %) 26.0 H Glucose (65 - 99 mg/dL) 100 H Lactic Acid (0.7 - 2.1 mmol/L) 1.2 Calcium (8.4 - 10.2 mg/dL) 9.3 Total Bilirubin (0.2 - 1.3 mg/dL) 1.8 H AST (14 - 36 U/L) 50 H ALT (9 - 52 U/L) 67 H Alkaline Phosphatase (<127 U/L) 67 Troponin I (< 0.11 ng/ml) < 0.01 Total Protein (6.3 - 8.2 g/dL) 5.4 L Albumin (3.5 - 5.0 g/dL) 3.2 L Globulin (1.9 - 4.2 gm/dL) 2.2 Albumin/Globulin Ratio (1.1 - 2.2 %) 1.5 Coagulation PT (9.4 - 12.5 SEC) 13.0 H INR (0.90 - 1.19) 1.24 H APTT (25 - 37 SEC) 24 L Hematology CBC w Diff MAN DIFF ORDERED WBC (4.8 - 10.8 /CUMM) 2.9 L RBC (4.20 - 5.40 /CUMM) 4.03 L Hgb (12.0 - 16.0 G/DL) 12.0 Hct (37 - 47 %) 35.4 L MCV (81.0 - 99.0 FL) 87.8 MCH (27.0 - 31.0 PG) 29.8 RDW (11.5 - 14.5 %) 14.1 Plt Count (130 - 400 /CUMM) 28 *L MPV (7.4 - 10.4 FL) 9.7 Gran % (42.2 - 75.2 %) 58.0 Lymphocytes % (20.5 - 51.1 %) 28.6 Monocytes % (1.7 - 9.3 %) 12.9 H Eosinophils % (0 - 5 %) 0.1 Basophils % (0.0 - 2.0 %) 0.4 Absolute Granulocytes (1.4 - 6.5 /CUMM) 1.7 Segmented Neutrophils (42.2 - 75.2 %) 51 Band Neutrophils (0.0 - 5.0 %) 6 H Absolute Lymphocytes (1.2 - 3.4 /CUMM) 0.8 L Lymphocytes (20.5 - 51.1 %) 31 Monocytes (1.7 - 9.3 %) 11 H Absolute Monocytes (0.10 - 0.60 /CUMM) 0.4 Eosinophils (0 - 5.0 %) 1 Absolute Eosinophils (0.0 - 0.7 /CUMM) 0 Absolute Basophils (0.0 - 0.2 /CUMM) 0 Platelet Estimate (ADEQUATE) VERIFIED BY SMEAR PUBS MCHC (33.0 - 37.0 G/DL) 33.9 Other Body Source Fld Total RBCs Counted (%) 100 Serology Infectious [place] (NEGATIVE) NEGATIVE Microbiology Date/Time Procedure - Status Source Growth 09/05 2004 Blood Culture - RES BLOOD 09/05 1952 Blood Culture - RES BLOOD Assessment * Pancytopenia- possibly tickborne illness; however patient reports that she has a strong family history of CLL. If her counts do not improve patient may need for further workup for underlying bone marrow disorder; notes from infectious disease and hematology were reviewed. * History of hypertension * Rheumatoid arthritis * History thyroid cancer and hypothyroidism * Elevated liver enzymes likely related to tick borne illness Plan * Continue oral doxycycline as per recommendation of Dr. Richards * Repeat CBC tomorrow * Await tick panel
[2016-09-06 22:20] VITALS: BP 124/80
[2016-09-07 06:36] VITALS: BP 134/80
[2016-09-07 08:35] LABS: ABSOLUTE BASOPHIL COUNT 0 /CUMM (0.0-0.2); ABSOLUTE EOSINOPHIL COUNT 0 /CUMM (0.0-0.7); ABSOLUTE GRANULOCYTE CT 1.4 /CUMM (1.4-6.5); ABSOLUTE LYMPH COUNT 1.5 /CUMM (1.2-3.4); ABSOLUTE MONOCYTE COUNT 0.3 /CUMM (0.10-0.60)
[2016-09-07 08:51] LABS: BASOPHIL % 0.7 % (0.0-2.0); EOSINOPHIL % 0.4 % (0-5); GRANULOCYTE % 43.3 % (42.2-75.2); MEAN CORPUSCULAR HGB 29.9 PG (27.0-31.0); MEAN CORPUSCULAR HGB CONC 33.7 G/DL (33.0-37.0); MEAN CORPUSCULAR VOLUME 88.7 FL (81.0-99.0); MEAN PLATELET VOLUME 9.9 FL (7.4-10.4); RBC DISTRIBUTION WIDTH 14.2 % (11.5-14.5); RED BLOOD CELL CT 3.95 /CUMM (4.20-5.40); WHITE BLOOD CELL COUNT 3.3 /CUMM (4.8-10.8)
[2016-09-07 09:17] LABS: PLATELET COUNT 55 /CUMM (130-400)
--- NOTE | 2016-09-07 13:02 | PN- Att Addend ---
Attending Addendum Attending Brief Note Patient seen and examined. Plan of care discussed with the medical team and the patient. Available lab work and radiology test reports were reviewed. Patient states that she is feeling slightly better. She denies any fever or chills or any sore throat. Denies any coughing phlegm or chest pain or difficulty breathing. Denies any nausea vomiting or skin rashes. Vital Signs Date Time Temp Pulse Resp B/P B/P Pulse O2 O2 Flow FiO2 Mean Ox Delivery Rate 09/07 0636 98.4 58 18 134/80 95 Room Air 09/06 2220 98.8 81 20 124/80 95 Room Air 09/06 1454 97.6 71 20 124/68 94 Intake & Output 09/07 1600 09/07 0800 09/07 0000 Intake Total 1080 1080 Output Total Balance 1080 1080 Intake, IV 600 600 Intake, Oral 480 480 Exam: General: Patient awake alert oriented without any distress CVS: S1 plus S2 without any murmur or gallops Chest: Few scattered crepitation without any wheeze. There is no respiratory distress. 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0 %) 0.7 Absolute Granulocytes (1.4 - 6.5 /CUMM) 1.4 Absolute Lymphocytes (1.2 - 3.4 /CUMM) 1.5 Absolute Monocytes (0.10 - 0.60 /CUMM) 0.3 Absolute Eosinophils (0.0 - 0.7 /CUMM) 0 Absolute Basophils (0.0 - 0.2 /CUMM) 0 PUBS MCHC (33.0 - 37.0 G/DL) 33.7 Take panel is currently pending; blood cultures are negative Assessment * Pancytopenia- possibly tickborne illness; cell counts have started to improve. patient reports that she has a strong family history of CLL. If her counts do not improve patient may need for further workup for underlying bone marrow disorder; notes from infectious disease and hematology were reviewed. * History of hypertension * Rheumatoid arthritis * History thyroid cancer and hypothyroidism * Elevated liver enzymes likely related to tick borne illness Plan * Continue oral doxycycline as per recommendation of Dr. Richards * Repeat CBC tomorrow * If her counts are better tomorrow patient may be a discharge home on by mouth doxycycline * Await tick panel
--- NOTE | 2016-09-07 13:53 | PN- Housestaff ---
Subjective Follow-up For: Tickborne illness Subjective: Pt states that she is doing well today. No acute events overnight. Denies fever, chills, n/v/c/d, muscle/joint pain, SOB, chest pain. Review of Systems Constitutional: Denies: see HPI. Cardiovascular: Denies: see HPI. Respiratory: Denies: see HPI. Gastrointestinal: Denies: see HPI. Musculoskeletal: Denies: see HPI. Objective Last 24 Hrs of Vital Signs/I&O Vital Signs Date Time Temp Pulse Resp B/P B/P Pulse O2 O2 Flow FiO2 Mean Ox Delivery Rate 09/07 1448 98.7 63 20 122/84 94 09/07 0636 98.4 58 18 134/80 95 Room Air 09/06 2220 98.8 81 20 124/80 95 Room Air Intake & Output 09/07 1600 09/07 0800 09/07 0000 Intake Total 300 1080 1080 Output Total 350 Balance -50 1080 1080 Intake, IV 300 600 600 Intake, Oral 480 480 Output, Urine 350 Physical Exam General Appearance: Alert, Oriented X3, Cooperative, No Acute Distress HEENT: Atraumatic, PERRLA, Mucous Membr. moist/pink Cardiovascular: Regular Rate, Normal S1, Normal S2 Lungs: Clear to Auscultation Abdomen: Normal Bowel Sounds, Soft, No Tenderness Extremities: No Edema, Normal Pulses Assessment/Plan Assessment: This is a 76-year-old female past medical history of unknown rheumatologic condition, hypothyroidism secondary to thyroidectomy, hypertension, who comes in for chief complaint of malaise, fever and weakness for the past week admitted for suspected tickborne illness. Admitted to general medicine for management of the following: thrombocytopenia and leukopenia: * Tick panel - Anaplasma PCR, Babesia PCR and Lyme titer * monitor CBC and transfuse if necessary - platelet: 55 Improved from day before * ID recommendations: - continue trending cbc, doxy 100mg q12, f/u labs: Anaplasma PCR, Babesia PCR and Lyme titer * Thank you for hematology and oncology consult * Blood cultures 2 * Follow-up blood cultures Transaminitis: This could be associated with patient's tick borne illness or an independent process. Patient has no right upper quadrant pain at this time. INR at 1.24 * Monitor AST and ALT- unchanged from previous day * Monitor coags Hypokalemia: - K: 3.2 - will replete - recheck tomorrow Hyponatremia: Patient has sodium 129. This can often be a manifestation of tickborne illness. Additionally, patient eloped very dry his stated that she didn't have much by mouth intake given her malaise for the past week. * Encourage hydration * IV hydration for 2 bags Hypertension: Chronic and stable * Continue losartan * Continue verapamil Hypothyroid: Chronic and stable. * Continue Synthroid Unknown rheumatologic condition: Chronic and stable * continue hydroxychloroquine Problem List: 1. Leukopenia 2. Thrombocytopenia Pain Ratin Pain Location: none Pain Goal: Remain pain free Pain Plan: none Tomorrow's Labs & Rationales: cbc bep Consulting Request: Consulting Specialty: Infectious Disease
[2016-09-07 14:48] VITALS: BP 122/84
--- NOTE | 2016-09-07 15:14 | PN- Infect Dx ---
Subjective Subjective: Patient states that she is feeling slightly better. She denies fever or chills. No sore throat. Review of Systems Comments: 12 points reviewed as noted, otherwise negative. No cough, chest pain or difficulty breathing. Denies nausea or vomiting. No skin rash. Objective Last 24 Hrs of Vital Signs/I&O Vital Signs Date Time Temp Pulse Resp B/P B/P Pulse O2 O2 Flow FiO2 Mean Ox Delivery Rate 09/07 1448 98.7 63 20 122/84 94 09/07 0636 98.4 58 18 134/80 95 Room Air 09/06 2220 98.8 81 20 124/80 95 Room Air Intake & Output 09/07 1600 09/07 0800 09/07 0000 Intake Total 300 1080 1080 Output Total 350 Balance -50 1080 1080 Intake, IV 300 600 600 Intake, Oral 480 480 Output, Urine 350 Physical Exam Other Physical Findings: NAD, well nourished HEENT: AT/NC, no thrush Heart: +S1 S2, no r/g Lungs: + BS, no rales Abd: soft, NT, welll healed midline sx incision Extr: no c/c/e Skin: pale; mild erythema (blanchig) upper chest Neuro: A&O x3 Results Last 24 Hours of Lab Results: Laboratory Tests 09/07 0715 Hematology CBC w Diff NO MAN DIFF REQ WBC (4.8 - 10.8 /CUMM) 3.3 L RBC (4.20 - 5.40 /CUMM) 3.95 L Hgb (12.0 - 16.0 G/DL) 11.8 L Hct (37 - 47 %) 35.0 L MCV (81.0 - 99.0 FL) 88.7 MCH (27.0 - 31.0 PG) 29.9 RDW (11.5 - 14.5 %) 14.2 Plt Count (130 - 400 /CUMM) 55 L MPV (7.4 - 10.4 FL) 9.9 Gran % (42.2 - 75.2 %) 43.3 Lymphocytes % (20.5 - 51.1 %) 45.6 Monocytes % (1.7 - 9.3 %) 10.0 H Eosinophils % (0 - 5 %) 0.4 Basophils % (0.0 - 2.0 %) 0.7 Absolute Granulocytes (1.4 - 6.5 /CUMM) 1.4 Absolute Lymphocytes (1.2 - 3.4 /CUMM) 1.5 Absolute Monocytes (0.10 - 0.60 /CUMM) 0.3 Absolute Eosinophils (0.0 - 0.7 /CUMM) 0 Absolute Basophils (0.0 - 0.2 /CUMM) 0 PUBS MCHC (33.0 - 37.0 G/DL) 33.7 Last 24 Hours of Mike Results: n/a Assessment/Plan Impression: 76-year-old woman with a history of rheumatoid arthritis, maintained on Plaquenil for many years, hypothyroidism and hypertension, and recent tick bite several weeks ago admitted with fatigue, anorexia, fever (up to 102F) and chills. Leukopenia and thrombocytopenia Eval tick borne dx (Lyme dx, Babesiosis, Ehrlichiosis or Anaplasmosis) Suggestion: 1. Follow-up Anaplasma and Babesia PCR, as well as Lyme (in progress) and Ehrilichia serology. 2. Trend CBC/BMP. 3. Continue Doxycycline 100 mg p.o. every 12 hours D #2/(pending above).
[2016-09-07 22:24] VITALS: BP 128/80
[2016-09-08 06:39] VITALS: BP 140/88
--- NOTE | 2016-09-08 07:21 | PN- Housestaff ---
Subjective Follow-up For: TICK BORN ILLNESS Complaints: no complaints Subjective: I have seen and examined the patient. The patient was sitting comfortably in her bed. She was eating breakfast. She has no current complaints. Shortness of breath palpitations or chest pain. Her IV doxycycline has been converted to oral. If her blood work looks okay she is a potential discharge for today. Review of Systems Constitutional: Reports: no symptoms. Cardiovascular: Denies: chest pain, palpitations. Respiratory: Denies: cough, hemoptysis, short of breath. Gastrointestinal: Reports: no symptoms. Genitourinary: Reports: no symptoms. Musculoskeletal: Reports: no symptoms. Objective Last 24 Hrs of Vital Signs/I&O Vital Signs Date Time Temp Pulse Resp B/P B/P Pulse O2 O2 Flow FiO2 Mean Ox Delivery Rate 09/08 0639 98.1 59 20 140/88 94 Room Air 09/07 2224 97.7 70 20 128/80 96 Room Air 09/07 1448 98.7 63 20 122/84 94 Intake & Output 09/08 1600 09/08 0800 09/08 0000 Intake Total 120 480 Output Total Balance 120 480 Intake, Oral 120 480 Physical Exam General Appearance: Alert, Oriented X3, Cooperative, No Acute Distress Skin: No Rashes, No Breakdown Neck: Supple Cardiovascular: Normal S1, Normal S2 Lungs: Clear to Auscultation, Normal Air Movement Abdomen: Normal Bowel Sounds, Soft, No Tenderness Neurological: Normal Speech Current Medications: Current Medications Sig/Lynn Start time Last Medication Dose Route Stop Time Status Admin Doxycycline Hyclate 100 MG BID 09/060 AC 09/07 PO 2123 Hydroxychloroquine 100 MG DAILY 09/08 1000 AC Sulfate PO Hydroxychloroquine 100 MG BID 09/07 220 DC Sulfate PO Hydroxychloroquine 200 MG DAILY 09/07 1129 DC Sulfate PO Hydroxychloroquine 200 MG BID 09/06 1000 DC 09/06 Sulfate PO 1016 Ibuprofen 600 MG Q6P PRN 09/06 0400 AC PO Levothyroxine Sodium 0.137 MG DAILY AC 09/08 0700 AC 09/08 PO 09/12 0701 0550 Oxycodone HCl 5 MG Q6 PRN 09/06 0400 AC PO Oxycodone HCl 10 MG Q6P PRN 09/06 0400 AC PO Potassium Chloride 60 MEQ ONCE ONE 09/07 2014 DC 09/07 PO 09/07 Assessment/Plan Assessment: This is a 76-year-old female past medical history of unknown rheumatologic condition, hypothyroidism secondary to thyroidectomy, hypertension, who comes in for chief complaint of malaise, fever and weakness for the past week. ED workup showed leukopenia and thrombocytopenia with normal red blood cell count. Given her history, differential diagnosis in this patient included tickborne illness vs malignancy. The ED workup showed:Vitals: 97.2, 69, 18, 124/69, 96.UA: Small leukocyte esterase, 3-5 white blood cell, few bacteria, small urine hemoglobin. CBC: White count 2.9, hemoglobin 12.0, hematocrit 35, platelet 28. 6 bands. 1.24 INR. BEP: Sodium 129, potassium 3.2, bicarbonate 5, chloride 26, BUN 13, creatinine 0.5EKG: AR interval at 196, QTC of 436. Some T-wave abnormalities in V3 to V6. Negative troponin 1 AST 50, ALT 67. Pancytopenia: Given her history we have sent the tick panel. Awaiting results. She was started on IV doxycycline and then shifted to by mouth. Her platelets have trended up to 115 and the WBC count is 4.4 today. Her RBC count fell a little after admission but is normal troday. Blood cultures are negative to date. We are discharging her on doxycycline 100 mg twice a day for 7 more days. As per hematology there were no immature cells, a few atypical lymphocytes were seen, she might need outpatient follow-up with hematology given her family history of CLL. Patient has been instructed to get CBC done and to follow-up with PCP. Transaminitis: This could be associated with patient's tick borne illness. Patient had no right upper quadrant pain at that time. INR at 1.24. Her AST and ALT today are 77 and 110. Total bilirubin and direct bilirubin are 0.7 and 0.3 trending down. Hyponatremia: Patient had sodium 129. This can often be a manifestation of tickborne illness. Additionally, patient stated that she didn't have much by mouth intake given her malaise for the past week. She was given IV hydration 2 bags and encourage oral hydration. Her hyponatremia has resolved now Hypertension: We continued her home medications losartan and verapamil Hypothyroidism: We continued her home doseSynthyroid. Rheumatoid arthritis: We continued her hydroxychloroquine Problem List: 1. Anaplasmosis 2. Ehrlichiosis 3. Thrombocytopenia 4. Leukopenia Pain Ratin Pain Location: N/A Pain Goal: Pain 4 or less Pain Plan: NONE Tomorrow's Labs & Rationales: NONE Consulting Request: Consulting Specialty: Infectious Disease Pain Plan: NONE Tomorrow's Labs & Rationales: NONE Consulting Request: Consulting Specialty: Infectious Disease
--- NOTE | 2016-09-08 07:32 | PN- Hematology ---
Subjective Subjective: She feels well. She has no new symptoms. She has no nausea or vomiting. She has no fever or chills. She did have some blood on the toilet paper after wiping this morning. She denies any blood in the stool. Review of Systems Constitutional: Denies: chills, fever, malaise, weakness. Cardiovascular: Denies: chest pain. Respiratory: Denies: short of breath. Gastrointestinal: Reports: see HPI, constipation. Denies: abdominal pain, bloody stool, changes in stool. Genitourinary: Denies: dysuria. Musculoskeletal: Denies: back pain. Neurological/Psychological: Denies: anxiety. Hematologic/Endocrine: Reports: bleeding. Immunologic/Allergic: Denies: lymphadenopathy. All Other Systems: Reviewed and Negative Objective Vital Signs and I&Os Vital Signs Date Time Temp Pulse Resp B/P B/P Pulse O2 O2 Flow FiO2 Mean Ox Delivery Rate 09/08 0639 98.1 59 20 140/88 94 Room Air 09/07 2224 97.7 70 20 128/80 96 Room Air 09/07 1448 98.7 63 20 122/84 94 Intake & Output 09/08 0800 09/08 0000 09/07 1600 09/07 0800 09/07 0000 09/06 1600 Intake Total 662 411 6914 1080 1325 Output Total 350 Balance 480 -50 1080 1080 1325 Intake, IV 300 600 600 525 Intake, Oral 480 480 480 800 Output, Urine 350 Physical Exam General Appearance: well developed/nourished, no apparent distress, alert, awake , comfortable Respiratory: normal breath sounds, chest non-tender, no respiratory distress Cardiovascular: regular rate/rhythm Abdomen: normal bowel sounds, soft, non-tender Extremities: no edema Neurologic/Psychiatric: awake, alert, oriented x 3, normal gait Skin: normal color Current Medications: Current Medications Sig/Lynn Start time Last Medication Dose Route Stop Time Status Admin Doxycycline Hyclate 100 MG BID 09/06 2199 AC 09/07 PO 2123 Hydroxychloroquine 100 MG DAILY 09/08 1000 AC Sulfate PO Hydroxychloroquine 100 MG BID 09/07 2199 DC Sulfate PO Hydroxychloroquine 200 MG DAILY 09/07 1129 DC Sulfate PO Hydroxychloroquine 200 MG BID 09/06 1000 DC 09/06 Sulfate PO 1016 Ibuprofen 600 MG Q6P PRN 09/06 0400 AC PO Levothyroxine Sodium 0.137 MG DAILY AC 09/08 0700 AC 09/08 PO 09/12 0701 0550 Oxycodone HCl 5 MG Q6 PRN 09/06 0400 AC PO Oxycodone HCl 10 MG Q6P PRN 09/06 0400 AC PO Potassium Chloride 60 MEQ ONCE ONE 09/07 2014 DC 09/07 PO 09/07 Assessment/Plan Assessment/Recommendations: Ms. Owen is a 76-year-old female with history of thyroid malignancy status post thyroidectomy, hypothyroidism, rheumatoid arthritis on hydroxychloroquine, and hypertension who presented to [facility] with new leukopenia and thrombocytopenia. On admission, she was noted to have WBC of 2900 with ANC of 1700. She had 6% bands. Platelet was 28,000. These are new compared to previous blood work, last in 03/2016. She was alson noted to have an elevated bilirubin of 2.0, mostly indirect. LFT is slightly increased and trending upward. She was hyponatremic. She has been noted to have fever and chills at home. She does have a history of tick bite. Her signs and symptoms are concerning for tick-borne disease likely ehrlichiosis/anaplasmosis. In addition , viral syndrome is also possible. She is now on doxycycline. Leukocyte and platelet counts are improving. She is symptomatically improving. Tick-borne disease evaluation is still pending. Clinically, she does likely have tick-borne disease. If her counts normalized, she should continue with PCP followup. She does not need hematology follow up. Her PCP may refer her if needed in the future. 1. Follow up tick-borne diseases evaluation 2. Continue doxycycline as per ID 3. Follow up with ID recommendations 4. If counts improves, follow up with PCP Please call [phone] with any new questions or concerns. Problem List: 1. Thrombocytopenia 2. Leukopenia
[2016-09-08 09:33] LABS: ABSOLUTE BASOPHIL COUNT 0 /CUMM (0.0-0.2); ABSOLUTE EOSINOPHIL COUNT 0 /CUMM (0.0-0.7); ABSOLUTE GRANULOCYTE CT 1.8 /CUMM (1.4-6.5); ABSOLUTE LYMPH COUNT 2.3 /CUMM (1.2-3.4); ABSOLUTE MONOCYTE COUNT 0.3 /CUMM (0.10-0.60); BASOPHIL % 0.4 % (0.0-2.0); EOSINOPHIL % 0.6 % (0-5); GRANULOCYTE % 39.5 % (42.2-75.2); HEMATOCRIT 38.2 % (37-47); MEAN CORPUSCULAR HGB 29.5 PG (27.0-31.0); MEAN CORPUSCULAR HGB CONC 33.7 G/DL (33.0-37.0); MEAN CORPUSCULAR VOLUME 87.6 FL (81.0-99.0); MEAN PLATELET VOLUME 9.1 FL (7.4-10.4); RBC DISTRIBUTION WIDTH 14.9 % (11.5-14.5); RED BLOOD CELL CT 4.36 /CUMM (4.20-5.40); WHITE BLOOD CELL COUNT 4.4 /CUMM (4.8-10.8)
[2016-09-08 10:32] LABS: PLATELET COUNT 115 /CUMM (130-400)
--- NOTE | 2016-09-08 12:39 | PN- Infect Dx ---
Subjective Subjective: No fever; feeling better. No n/v/cough/CP or palpitations. Review of Systems Comments: 12 points reviewed as noted, otherwise negative. Objective Last 24 Hrs of Vital Signs/I&O Vital Signs Date Time Temp Pulse Resp B/P B/P Pulse O2 O2 Flow FiO2 Mean Ox Delivery Rate 09/08 0639 98.1 59 20 140/88 94 Room Air 09/07 2224 97.7 70 20 128/80 96 Room Air 09/07 1448 98.7 63 20 122/84 94 Intake & Output 09/08 1600 09/08 0800 09/08 0000 Intake Total 120 480 Output Total Balance 120 480 Intake, Oral 120 480 Physical Exam Other Physical Findings: General Appearance: well developed/nourished, no apparent distress, alert, awake , comfortable Respiratory: normal breath sounds, chest non-tender, no respiratory distress Cardiovascular: regular rate/rhythm, MARKIE 1/6 RUSB Abdomen: normal bowel sounds, soft, non-tender Extremities: no pedal edema Neurologic/Psychiatric: awake, alert, oriented x 3, normal gait Skin: pale, upper chest rash resolved Results Last 24 Hours of Lab Results: Laboratory Tests 09/08 0800 Chemistry Sodium (137 - 145 mmol/L) 141 Potassium (3.5 - 5.1 mmol/L) 4.1 Chloride (98 - 107 mmol/L) 109 H Carbon Dioxide (22 - 30 mmol/L) 25 Anion Gap (5 - 16) 8 BUN (7 - 17 mg/dL) 6 L Creatinine (0.5 - 1.0 mg/dL) 0.5 Estimated GFR (>60 ml/min) > 60 BUN/Creatinine Ratio (7 - 25 %) 12.0 Total Bilirubin (0.2 - 1.3 mg/dL) 0.7 Direct Bilirubin (< 0.4 mg/dL) 0.3 AST (14 - 36 U/L) 77 H ALT (9 - 52 U/L) 110 H Alkaline Phosphatase (<127 U/L) 71 Total Protein (6.3 - 8.2 g/dL) 5.4 L Albumin (3.5 - 5.0 g/dL) 3.2 L Hematology CBC w Diff NO MAN DIFF REQ WBC (4.8 - 10.8 /CUMM) 4.4 L RBC (4.20 - 5.40 /CUMM) 4.36 Hgb (12.0 - 16.0 G/DL) 12.9 Hct (37 - 47 %) 38.2 MCV (81.0 - 99.0 FL) 87.6 MCH (27.0 - 31.0 PG) 29.5 RDW (11.5 - 14.5 %) 14.9 H Plt Count (130 - 400 /CUMM) 115 L MPV (7.4 - 10.4 FL) 9.1 Gran % (42.2 - 75.2 %) 39.5 L Lymphocytes % (20.5 - 51.1 %) 51.7 H Monocytes % (1.7 - 9.3 %) 7.8 Eosinophils % (0 - 5 %) 0.6 Basophils % (0.0 - 2.0 %) 0.4 Absolute Granulocytes (1.4 - 6.5 /CUMM) 1.8 Absolute Lymphocytes (1.2 - 3.4 /CUMM) 2.3 Absolute Monocytes (0.10 - 0.60 /CUMM) 0.3 Absolute Eosinophils (0.0 - 0.7 /CUMM) 0 Absolute Basophils (0.0 - 0.2 /CUMM) 0 PUBS MCHC (33.0 - 37.0 G/DL) 33.7 Last 24 Hours of Mike Results: n/a Recent Imaging Studies: n/a Assessment/Plan Impression: 76-year-old woman with a history of rheumatoid arthritis, maintained on Plaquenil for many years, hypothyroidism and hypertension, and recent tick bite several weeks ago admitted with fatigue, anorexia, fever (up to 102F) and chills. Leukopenia and thrombocytopenia/resolved Eval tick borne dx (Lyme dx, Babesiosis, Ehrlichiosis or Anaplasmosis) Suggestion: 1. Follow-up Anaplasma and Babesia PCR, as well as Lyme (in progress) and Ehrilichia serology. 2. Trend CBC/BMP as OP within 1 week from discharge. F/U PCP. 3. Continue Doxycycline 100 mg p.o. every 12 hours D #3/14.
--- NOTE | 2016-09-08 12:41 | Patient Discharge Instructions ---
Discharge Instructions General Discharge Information You were seen/treated for: Tick bite Low platelet Low WBC Watch for these problems: 1. fever 2. rash 3. chest pain 4. shortness of breath Special Instructions: 1. follow up with your PCP in one week 2. follow up with your cook helper 3. complete your antibioitic course as recommended Diet Continue normal diet: Yes Activity Activity Self Limited: Yes Acute Coronary Syndrome Inclusion Criteria At DC or during hospital stay patient has or had the following: ACS DIAGNOSIS No Discharge Core Measures Meds if any: Prescribed or Continued at Discharge Meds if any: NOT Prescribed or Continued at Discharge Congestive Heart Failure Inclusion Criteria At DC or during hospital stay patient has or had the following: CHF DIAGNOSIS No Discharge Core Measures Meds if any: Prescribed or Continued at Discharge Meds if any: NOT Prescribed or Continued at Discharge Cerebrovascular accident Inclusion Criteria At DC or during hospital stay patient has or had the following: CVA/TIA Diagnosis No Discharge Core Measures Meds if any: Prescribed or Continued at Discharge Meds if any: NOT Prescribed or Continued at Discharge Venous thromboembolism Inclusion Criteria VTE Diagnosis No VTE Type NONE VTE Confirmed by (Test) NONE Discharge Core Measures - Per Current guidelines, there needs to be overlap - treatment for the first 5 days of Warfarin therapy. - If discharged on Warfarin prior to 5 days of - overlap therapy, the patient will need to be - assessed for post discharge needs including - *Post discharge parental anticoagulation - *Warfarin and/or parental anticoagulation education - *Follow up date to check INR post discharge At least 5 days overlap therapy as Inpatient No Meds if any: Prescribed or Continued at Discharge Note: Overlap Therapy is Warfarin and Anticoagulant Meds if any: NOT Prescribed or Continued at Discharge
--- NOTE | 2016-09-08 13:41 | PN- Att Addend ---
Attending Addendum Attending Brief Note Patient seen and examined. Plan of care discussed with the medical team and the patient. Available lab work and radiology test reports were reviewed. Patient states that she is feeling slightly better. She denies any fever or chills or any sore throat. Denies any coughing phlegm or chest pain or difficulty breathing. Denies any nausea vomiting or skin rashes. Vital Signs Date Time Temp Pulse Resp B/P B/P Pulse O2 O2 Flow FiO2 Mean Ox Delivery Rate 09/08 0639 98.1 59 20 140/88 94 Room Air 09/07 2224 97.7 70 20 128/80 96 Room Air 09/07 1448 98.7 63 20 122/84 94 Intake & Output 09/08 1600 09/08 0800 09/08 0000 Intake Total 120 480 Output Total Balance 120 480 Intake, Oral 120 480 Exam: General: Patient awake alert oriented without any distress CVS: S1 plus S2 without any murmur or gallops Chest: Few scattered crepitation without any wheeze. There is no respiratory distress. Abdomen: Soft nontender, bowel sound present, no guarding or rebound ART DEALER: Awake alert oriented without any focal neuro deficit and follows command appropriately Extremities: No edema; no clubbing or cyanosis noted ; no rashes are noted Laboratory Tests 09/08 0800 Chemistry Sodium (137 - 145 mmol/L) 141 Potassium (3.5 - 5.1 mmol/L) 4.1 Chloride (98 - 107 mmol/L) 109 H Carbon Dioxide (22 - 30 mmol/L) 25 Anion Gap (5 - 16) 8 BUN (7 - 17 mg/dL) 6 L Creatinine (0.5 - 1.0 mg/dL) 0.5 Estimated GFR (>60 ml/min) > 60 BUN/Creatinine Ratio (7 - 25 %) 12.0 Total Bilirubin (0.2 - 1.3 mg/dL) 0.7 Direct Bilirubin (< 0.4 mg/dL) 0.3 AST (14 - 36 U/L) 77 H ALT (9 - 52 U/L) 110 H Alkaline Phosphatase (<127 U/L) 71 Total Protein (6.3 - 8.2 g/dL) 5.4 L Albumin (3.5 - 5.0 g/dL) 3.2 L Hematology CBC w Diff NO MAN DIFF REQ WBC (4.8 - 10.8 /CUMM) 4.4 L RBC (4.20 - 5.40 /CUMM) 4.36 Hgb (12.0 - 16.0 G/DL) 12.9 Hct (37 - 47 %) 38.2 MCV (81.0 - 99.0 FL) 87.6 MCH (27.0 - 31.0 PG) 29.5 RDW (11.5 - 14.5 %) 14.9 H Plt Count (130 - 400 /CUMM) 115 L MPV (7.4 - 10.4 FL) 9.1 Gran % (42.2 - 75.2 %) 39.5 L Lymphocytes % (20.5 - 51.1 %) 51.7 H Monocytes % (1.7 - 9.3 %) 7.8 Eosinophils % (0 - 5 %) 0.6 Basophils % (0.0 - 2.0 %) 0.4 Absolute Granulocytes (1.4 - 6.5 /CUMM) 1.8 Absolute Lymphocytes (1.2 - 3.4 /CUMM) 2.3 Absolute Monocytes (0.10 - 0.60 /CUMM) 0.3 Absolute Eosinophils (0.0 - 0.7 /CUMM) 0 Absolute Basophils (0.0 - 0.2 /CUMM) 0 PUBS MCHC (33.0 - 37.0 G/DL) 33.7 Assessment * Pancytopenia- possibly tickborne illness; cell counts have improved. patient reports that she has a strong family history of CLL. If her counts do not improve patient may need for further workup for underlying bone marrow disorder; notes from infectious disease and hematology were reviewed. * History of hypertension * Rheumatoid arthritis * History thyroid cancer and hypothyroidism * Elevated liver enzymes likely related to tick borne illness Plan * Continue oral doxycycline for 10 days * Repeat CBC later this week * Discharge home today * Await tick panel
--- NOTE | 2016-09-08 14:34 | Discharge Summary ---
Visit Information Visit Dates Admission Date: 09/05/16 Discharge Date: 09/08/16 Hospital Course Course Attending Physician: JACE SCHUSTER MD Primary Care Physician: WILDER WEINSTEIN,ERICA Sandoval Consulting Request: Consulting Specialty: Infectious Disease Hospital Course: This is a 76-year-old female past medical history of unknown rheumatologic condition, hypothyroidism secondary to thyroidectomy, hypertension, who comes in for chief complaint of malaise, fever and weakness for the past week. The ED workup showed: Vitals: 97.2, 69, 18, 124/69, 96.UA: Small leukocyte esterase, 3-5 white blood cell, few bacteria, small urine hemoglobin. CBC: White count 2.9, hemoglobin 12.0, hematocrit 35, platelet 28. 6 bands. 1.24 INR. BEP: Sodium 129, potassium 3.2, bicarbonate 5, chloride 26, BUN 13, creatinine 0.5EKG: VT interval at 196, QTC of 436. Some T-wave abnormalities in V3 to V6. Negative troponin 1 AST 50, ALT 67. Pt seen for following problems: Pancytopenia: Given her history we have sent the tick panel. Awaiting results. She was started on IV doxycycline and then shifted to by mouth. Her platelets have trended up to 115 and the WBC count is 4.4 today. Her RBC count fell a little after admission but is normal troday. Blood cultures are negative to date. * We are discharging her on doxycycline 100 mg twice a day for 7 more days. * Patient has been instructed to get CBC done and to follow-up with PCP. Transaminitis: This could be associated with patient's tick borne illness. Patient had no right upper quadrant pain at that time. INR at 1.24. Her AST and ALT today are 77 and 110. Total bilirubin and direct bilirubin are 0.7 and 0.3 trending down. * Follow up outpatient Hyponatremia-RESOLVED: Patient had sodium 129. This can often be a manifestation of tickborne illness. Additionally, patient stated that she didn't have much by mouth intake given her malaise for the past week. She was given IV hydration /encourage oral hydration. Hypertension: * Cont' home medications losartan and verapamil Hypothyroidism: * Con't home doseSynthyroid. Rheumatoid arthritis: * Cont' her hydroxychloroquine Allergies: Coded Allergies: No Known Allergies (09/27/15) Disposition Summary Disposition Principal Diagnosis: Tick born illness Transaminitis secondary to tick borne illness Hyponatremia secondary to tick borne illness Additional Diagnosis: Hypothyroidism Hypertension Rheumatoid arthritis Discharge Disposition: home or self care Discharge Instructions General Discharge Information Code Status: Full Code Patient's Diet: Regular Patient's Activity: As tolerated Follow-Up Instructions/Appts: Get CBC done on 09/13/2016 Follow-up with your PCP in 1 week Follow-up with your treatment coordinator Complete the antibiotic course Follow up with the aircraft electrical systems specialist Medications at Discharge Discharge Medications: Stop taking the following medications: Amoxicillin (Amoxicillin) 875 MG TABLET ORAL TWICE DAILY Qty = 14 Continue taking these medications: Doxycycline Monohydrate (Doxycycline Monohydrate) 100 MG CAPSULE 1 Capsule ORAL TWICE DAILY Qty = 20 Instructions: Continue medication twice a day for 7 more days. STOP on the morning of 09/16 Comments: Last Taken: 09/08/16 Time: 1000 Levothyroxine Sodium (Synthroid) 137 MCG TABLET 1 Tablet ORAL THURSDAY-THURSDAY Qty = 65 Comments: Last Taken: 09/07/16 Time: 0650 AM Hydroxychloroquine Sulfate (Hydroxychloroquine Sulfate) 200 MG TABLET 1 Tablet ORAL TWICE DAILY Qty = 45 Comments: Last Taken: 09/08/16 Time: 1000 Verapamil HCl (Verapamil ER) 240 MG TABLET.ER 1 Tablet ORAL DAILY Qty = 90 Comments: NOT TAKEN IN HOSPITAL Losartan Potassium (Losartan Potassium) 50 MG TABLET 1 Tablet ORAL DAILY Qty = 90 Comments: NOT TAKEN IN HOSPITAL Levothyroxine Sodium (Levothyroxine Sodium) 150 MCG TABLET 1 Tablet ORAL SAT-SUN Comments: Last Taken: 09/08/16 Time: 0650 AM Copies To: WILDER WEINSTEIN,ERICA Sandoval; KORY WEINSTEIN,MINH
== END 2016-09-08 13:40 | DRG 866 ==
LOC: ERH 18:39 → 2NA 23:35 → ERHI 23:35 → 2NA 23:35 → ENRESERV 09-06 01:22 → 2NA 09-06 02:23 → ENPENDDIS 09-08 12:46 → 2NA 09-08 13:40
PROVIDERS: Physician Assistant Medical; Student in an Organized Health Care Education/Training Program; ADMIT Student in an Organized Health Care Education/Training Program
DX: A93.8 Other specified arthropod-borne viral fevers (principal); D61.818 Other pancytopenia; D69.6 Thrombocytopenia, unspecified; E87.1 Hypo-osmolality and hyponatremia; D72.819 Decreased white blood cell count, unspecified; R74.0 Nonspecific elevation of levels of transaminase and lactic acid dehydrogenase [LDH]; E89.0 Postprocedural hypothyroidism; M06.9 Rheumatoid arthritis, unspecified; I10 Essential (primary) hypertension
CPT/HCPCS: 2NAP; 86317; 86618; 87798; ERO; 36415; 81001; 82436; 87040; 87086; 93005; 93010; 96365